=== PATIENT | male | born 1960 | race African-American/Black ===

== ENCOUNTER 2018-08-27 10:20 | Inpatient (IN) | payer OTHER ==
[2018-08-27 10:51] VITALS: BMI 19.9
--- NOTE | 2018-08-27 11:47 | HP ---
CIWA Score Nausea/Vomitin Muscle Tremors: 4-Moderate,w/Arms Extend Anxiety: 4-Mod. Anxious/Guarded Agitation: 1-Slight > Activity Paroxysmal Sweats: No Perspiration Orientation: 0-Oriented Tacttile Disturbances: 0-None Auditory Disturbances: 0-None Visual Disturbances: 0-None Headache: 2-Mild CIWA-Ar Total Score: 14 - Admission Criteria OASAS Guidelines: Admission for Medically Managed Detox: Requires at least one of the followin. CIWA greater than 12 2. Seizures within the past 24 hours 3. Delirium tremens within the past 24 hours 4. Hallucinations within the past 24 hours 5. Acute intervention needed for co occurring medical disorder 6. Acute intervention needed for co occurring psychiatric disorder 7. Severe withdrawal that cannot be handled at a lower level of care (continued vomiting, continued diarrhea, abnormal vital signs) requiring intravenous medication and/or fluids 8. Patient presents the following: CIWA greater than 12 Admission Criteria Met: Admission criteria met Admission ROS BHS - HPI Chief Complaint: I'm sliding down hill, I need to stop and I can't do it by myself Allergies/Adverse Reactions: Allergies Allergy/AdvReac Type Severity Reaction Status Date / Time No Known Allergies Allergy Verified 08/27/18 10:41 History of Present Illness: 58 yo gentleman here for detox from alcohol, also using crack. First time in detox here but previously in detox about six months ago at [facility] and also treated at [facility]. Denies seizure or black outs but drinks first thing in the morning. Exam Limitations: No Limitations - Ebola screening Have you traveled outside of the country in the last 21 days: No (N) Have you had contact with anyone from an Ebola affected area: No Do you have a fever: No - Review of Systems Constitutional: Loss of Appetite, Malaise, Changes in sleep, Weakness, Unintentional Wgt. Loss EENT: reports: No Symptoms Reported Respiratory: reports: No Symptoms reported Cardiac: reports: No Symptoms Reported GI: reports: Poor Appetite, Poor Fluid Intake, Indigestion, Abdominal cramping : reports: Frequency Musculoskeletal: reports: No Symptoms Reported Integumentary: reports: Dryness Neuro: reports: Tremors, Weakness Endocrine: reports: No Symptoms Reported Hematology: reports: No Symptoms Reported Psychiatric: reports: Judgement Intact, Mood/Affect Appropiate, Anxious Other Systems: Reviewed and Negative Patient History - Patient Medical History Hx Anemia: No Hx Asthma: No Hx Chronic Obstructive Pulmonary Disease (COPD): No Hx Cancer: No Hx Cardiac Disorders: No Hx Congestive Heart Failure: No Hx Hypertension: No Hx Hypercholesterolemia: No Hx Pacemaker: No HX Cerebrovascular Accident: No Hx Seizures: No Hx Diabetes: No Hx Gastrointestinal Disorders: No Hx Liver Disease: No Hx Genitourinary Disorders: No Hx Sexually Transmitted Disorders: No Hx Renal Disease (ESRD): No Hx Thyroid Disease: No Hx Human Immunodeficiency Virus (HIV): No Hx Hepatitis C: No Hx Depression: Yes (hospitalized years ago) Hx Suicide Attempt: No (denies) Hx Bipolar Disorder: Yes Hx Schizophrenia: No - Patient Surgical History Past Surgical History: No - PPD History Previous Implant?: Yes Documented Results: Negative w/o proof Implanted On Prior [facility] Admission?: No PPD to be Administered?: Yes - Reproductive History Patient is a Female of Child Bearing Age (11 -55 yrs old): No (male) - Smoking Cessation Smoking history: Current every day smoker Have you smoked in the past 12 months: Yes Aproximately how many cigarettes per day: 10 Initiated information on smoking cessation: Yes 'Breaking Loose' booklet given: 08/27/18 (give on floor) - Substance & Tx. History Hx Alcohol Use: Yes Hx Substance Use: Yes Substance Use Type: Alcohol, Cocaine Hx Substance Use Treatment: Yes (detox) - Substances abused Alcohol Substance route: Oral Frequency: Daily Amount used: 2 six packs 12 oz beer; 1 pint of hennesy or bacardi Age of first use: 7 Date of last use: 08/27/18 Crack Substance route: Smoking Frequency: Daily Amount used: $50-100 Age of first use: 29 Date of last use: 08/26/18 Family Disease History - Family Disease History Family Disease History: Other: Father (etoh, living), Mother (, old age) , Brother (three - living - healthy), Sister (two - living -healthy) Admission Physical Exam BHS - Vital Signs Vital Signs: Vital Signs - 24 hr 08/27/18 10:45 Temperature 97.0 F L Pulse Rate 76 Respiratory 17 Rate Blood Pressure 120/80 - Physical General Appearance: Yes: Appropriately Dressed, Cachetic, Thin, Tremorous, Anxious HEENTM: Yes: EOMI, Hearing grossly Normal, Normocephalic, Normal Voice, Pharynx Normal Respiratory: Yes: Normal Breath Sounds, No Respiratory Distress Neck: Yes: No masses,lesions,Nodules, Supple Breast: Yes: Breast Exam Deferred Cardiology: Yes: Regular Rhythm, Regular Rate Abdominal: Yes: Flat, Soft Genitourinary: Yes: Frequency Back: Yes: Normal Inspection Musculoskeletal: Yes: full range of Motion, Gait Steady Extremities: Yes: Normal Range of Motion, Tremors Neurological: Yes: Fully Oriented, Alert, Normal Mood/Affect, Normal Response Integumentary: Yes: Normal Color, Dry, Warm, Rash (chronic back rash - flat, hyperpigmented with small plaque) Lymphatic: Yes: Within Normal Limits - Diagnostic (1) Alcohol dependence with uncomplicated withdrawal Current Visit: Yes Status: Chronic (2) Psoriasis Current Visit: Yes Status: Chronic Comment: states has had back rash for many years, not currently needing treatment (3) Nicotine dependence Current Visit: Yes Status: Chronic Qualifiers: Nicotine product type: cigarettes Substance use status: uncomplicated Qualified Code(s): F17.210 - Nicotine dependence, cigarettes, uncomplicated Cleared for Admission [facility] - Detox or Rehab [facility] Level of Care: Medically Managed Detox Regimen/Protocol: Librium Breathalyzer - Breathalyzer Breathalyzer: 0 Urine Drug Screen - Test Device Lot number: [id number] Expiration date: 05/26/20 - Control Is test valid?: Yes - Results Drug screen NEGATIVE: No Urine drug screen results: CECILLE-Cocaine, BZO-Benzodiazepines Inpatient Rehab Admission - Rehab Decision to Admit Inpatient rehab admission?: No
[2018-08-27] MEDS ORDERED: MAGNESIUM CITRATE 300 ML BOTTLE PO PRN (11:54)
[2018-08-27] MEDS ORDERED: BISMUTH SUBSALICYLATE 524 MG/30 ML UD PO PRN (11:54)
[2018-08-27] MEDS ORDERED: NICOTINE POLACRILEX 4 MG GUM BUC PRN (11:54)
[2018-08-27] MEDS ORDERED: ACETAMINOPHEN 325 MG TABLET (FP) PO PRN (11:54)
[2018-08-27] MEDS ORDERED: METHOCARBAMOL 500 MG TABLET PO PRN (11:54)
[2018-08-27] MEDS ORDERED: IBUPROFEN 400 MG TABLET (FP) PO PRN (11:54)
[2018-08-27] MEDS ORDERED: chlordiazePOXIDE HCL 25 MG CAPSULE PO PRN (11:54)
[2018-08-27] MEDS ORDERED: MAGNESIUM HYDROX 2400MG/30ML ORAL SUSPENSION 30 ML CUP PO PRN (11:54)
[2018-08-27] MEDS ORDERED: MAG HYDROX/AL HYDROX/SIMETH 30 ML UNIT-DOSE CUP PO PRN (11:54)
[2018-08-27] MEDS ORDERED: hydrOXYzine PAMOATE 25 MG CAPSULE (FP) PO PRN (11:54)
[2018-08-27] MEDS ORDERED: MENTHOL/PHENOL 1 EACH UD MM PRN (11:54)
[2018-08-27] MEDS ORDERED: COLLOIDAL OATMEAL 1 BAR EACH TP PRN (11:56)
[2018-08-27] MEDS ORDERED: chlordiazePOXIDE HCL 25 MG CAPSULE PO ONE (12:30)
[2018-08-27] MEDS: chlordiazePOXIDE HCL 25 MG CAPSULE PO SCH ×2 (17:26→22:45)
[2018-08-27 18:14] LABS: URINE APPEARANCE TURBID; URINE BILIRUBIN NEGATIVE (NEGATIVE); URINE COLOR YELLOW; URINE GLUCOSE (UA) NEGATIVE (NEGATIVE); URINE KETONE NEGATIVE (NEGATIVE); URINE LEUK ESTERASE NEGATIVE (NEGATIVE); URINE NITRITE NEGATIVE (NEGATIVE); URINE PROTEIN NEGATIVE (NEGATIVE); URINE UROBILINOGEN 0.2 mg/dL (0.2-1.0)
[2018-08-27] MEDS: MELATONIN 5 MG TABLETS PO PRN (22:45)
[2018-08-27] MEDS: THIAMINE HCL 100 MG TABLET (FP) PO SCH (22:45)
[2018-08-28] MEDS: chlordiazePOXIDE HCL 25 MG CAPSULE PO SCH ×4 (05:25→22:08)
--- NOTE | 2018-08-28 08:36 | CONSULT ---
[facility] Psychiatric Consult - Data Date of interview: 08/28/18 Admission source: Self-referred Identifying data: Mr Sam yancey a 58 years old single black male, unemployed receving SSD, homeless living in a longterm seeking detox treatment for alcohol and crack cocaine Substance Abuse History: Reports history of alcohol and crack cocaine use. Refer to addiction counselor's summary foir further information Medical History: Unremarkale except for HIV since 2002. Smokes 10 cigarettes daily Psychiatric History: Reports that his first psychiatric contact was in the when he was admitted to an unknown facility, diagnosed with Bipolar Disorder and started on psychotropic medications. Report multiple subsequent hospitalizations mostly at the [facility] and [facility]. Reports that his most recent admission was at [facility] years ago. Reports currently receiving outpatient psychiatric treatment at the [facility] and he is prescribed Zyprexa 15 mg/hs and Remeron 15 mg/hs. Denies previous suicidal attempts. At present, denies experiencing psychotic, manic or depressive symptoms, S.H ideations. However, reorts sleeping poorly Physical/Sexual Abuse/Trauma History: Denies history of emotional, physical or sexual abuse as well as DV relationship. 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 Additional Comment: Denies criminal history Mental Status Exam - Mental Status Exam Alert and Oriented to: Time, Place, Person Cognitive Function: Fair Patient Appearance: Well Groomed Mood: Hopeful, Euthymic Patient Behavior: Cooperative Speech Pattern: Clear Voice Loudness: Normal Thought Process: Intact, Goal Oriented Hallucinations: Denies Suicidal Ideation: Denies Homicidal Ideation: Denies Insight/Judgement: Poor Sleep: Poorly Appetite: Good Muscle strength/Tone: Normal Gait/Station: Normal Psychiatric Findings - Problem List ([place] 1, 2,3) (1) Bipolar II disorder Current Visit: Yes Status: Chronic (2) Substance-induced sleep disorder Current Visit: Yes Status: Acute (3) Alcohol dependence with uncomplicated withdrawal Current Visit: Yes Status: Acute (4) Cocaine dependence Current Visit: Yes Status: Acute (5) Nicotine dependence Current Visit: Yes Status: Chronic Qualifiers: Nicotine product type: cigarettes Substance use status: uncomplicated Qualified Code(s): F17.210 - Nicotine dependence, cigarettes, uncomplicated (6) Psoriasis Current Visit: Yes Status: Chronic Comment: states has had back rash for many years, not currently needing treatment - Initial Treatment Plan Initial Treatment Plan: 1) Continue Zyprexa 15 mg po HS and remeron 15 mg po HS. 2) Start Belsomra 10 mg po HS prn for insomnia. 3) Continue inpatient detoxification
[2018-08-28] MEDS: PRENATAL VITAMINS W/ FOLIC ACID TABLET (FP) PO SCH (10:06)
[2018-08-28 10:52] LABS: ALBUMIN 3.8 g/dl (3.4-5.0); BILIRUBIN,TOTAL 0.3 mg/dL (0.2-1); CALCIUM 8.7 mg/dL (8.5-10.1); CREATININE 0.9 mg/dL (0.55-1.3); POTASSIUM 3.8 mmol/L (3.5-5.1); TOT PROT 7.4 g/dl (6.4-8.2)
[2018-08-28 11:00] LABS: HEMATOCRIT 29.6 % (35.4-49); MCHC 30.4 g/dl (32.0-35.9); MEAN CELL VOLUME 64.2 fl (80-96); MEAN PLT VOLUME 9.4 fl (7.5-11.1); PLATELET COUNT 69 K/MM3 (134-434); RBC 4.61 M/mm3 (4.00-5.60); RDW 19.7 % (11.9-15.9)
[2018-08-28 12:04] LABS: MCH 19.5 pg (25.7-33.7); WHITE BLOOD COUNT 1.9 K/mm3 (4.0-10.0)
[2018-08-28 12:13] LABS: SICKLE CELL SCREEN NEGATIVE (NEGATIVE)
--- NOTE | 2018-08-28 13:02 | PN ---
[facility] CIWA - CIWA Score Nausea/Vomitin-No Nausea/No Vomiting Muscle Tremors: 3 Anxiety: 2 Agitation: 0-Normal Activity Paroxysmal Sweats: 2 Orientation: 0-Oriented Tacttile Disturbances: 0-None Auditory Disturbances: 0-None Visual Disturbances: 0-None Headache: 0-None Present CIWA-Ar Total Score: 7 S Progress Note (SOAP) Subjective: shakes sleep disturbance Objective: 08/28/18 12:55 A & O x 3 tremors noted no acute distress Vital Signs Temperature 97.3 F L 08/28/18 09:48 Pulse Rate 90 08/28/18 09:48 Respiratory Rate 16 08/28/18 09:48 Blood Pressure 120/83 08/28/18 09:48 O2 Sat by Pulse Oximetry (%) Laboratory Last Values WBC 1.9 K/mm3 (4.0-10.0) L* 08/28/18 07:40 RBC 4.61 M/mm3 (4.00-5.60) 08/28/18 07:40 Hgb 9.0 GM/dL (11.7-16.9) L 08/28/18 07:40 Hct 29.6 % (35.4-49) L 08/28/18 07:40 MCV 64.2 fl (80-96) L 08/28/18 07:40 MCH 19.5 pg (25.7-33.7) L 08/28/18 07:40 MCHC 30.4 g/dl (32.0-35.9) L 08/28/18 07:40 RDW 19.7 % (11.9-15.9) H 08/28/18 07:40 Plt Count 69 K/MM3 (134-434) L 08/28/18 07:40 MPV 9.4 fl (7.5-11.1) 08/28/18 07:40 Sickle Cell Screen Negative (NEGATIVE) 08/28/18 07:40 Sodium 143 mmol/L (136-145) 08/28/18 07:40 Potassium 3.8 mmol/L (3.5-5.1) 08/28/18 07:40 Chloride 107 mmol/L (98-107) 08/28/18 07:40 Carbon Dioxide 28 mmol/L (21-32) 08/28/18 07:40 Anion Gap 8 MMOL/L (8-16) 08/28/18 07:40 BUN 10 mg/dL (7-18) 08/28/18 07:40 Creatinine 0.9 mg/dL (0.55-1.3) 08/28/18 07:40 Est GFR (CKD-EPI)AfAm 107.97 08/28/18 07:40 Est GFR (CKD-EPI)NonAf 93.16 08/28/18 07:40 Random Glucose 81 mg/dL (74-106) 08/28/18 07:40 Calcium 8.7 mg/dL (8.5-10.1) 08/28/18 07:40 Total Bilirubin 0.3 mg/dL (0.2-1) 08/28/18 07:40 AST 19 U/L (15-37) 08/28/18 07:40 ALT 26 U/L (13-61) 08/28/18 07:40 Alkaline Phosphatase 65 U/L (45-117) 08/28/18 07:40 Total Protein 7.4 g/dl (6.4-8.2) 08/28/18 07:40 Albumin 3.8 g/dl (3.4-5.0) 08/28/18 07:40 Urine Color Yellow 08/27/18 12:30 Urine Appearance Turbid 08/27/18 12:30 Urine pH 5.0 (5.0-8.0) 08/27/18 12:30 Ur Specific [place] 1.022 (1.010-1.035) 08/27/18 12:30 Urine Protein Negative (NEGATIVE) 08/27/18 12:30 Urine Glucose (UA) Negative (NEGATIVE) 08/27/18 12:30 Urine Ketones Negative (NEGATIVE) 08/27/18 12:30 Urine Blood Negative (NEGATIVE) 08/27/18 12:30 Urine Nitrite Negative (NEGATIVE) 08/27/18 12:30 Urine Bilirubin Negative (NEGATIVE) 08/27/18 12:30 Urine Urobilinogen 0.2 mg/dL (0.2-1.0) 08/27/18 12:30 Ur Leukocyte Esterase Negative (NEGATIVE) 08/27/18 12:30 ABNORMAL VALUES NOTED Assessment: 08/28/18 13:02 WITHDRAWAL SX PANCYTOPENIA Plan: CONTINUE DETOX THIS IS PATIENT'S FIRST VISIT: REPEAT LABS IN THE A.M FOR BASELINE COMPARISON EDUCATED PT ON INJURY PREVENTION AND IMPORTANCE OF HANDWASHING FOR INFECTION PREVENTION, HE VERBALIZED UNDERSTANDING
--- NOTE | 2018-08-28 15:41 | EKG ---
Test Reason : Blood Pressure : / mmHG Vent. Rate : 052 BPM Atrial Rate : 052 BPM P-R Int : 176 ms QRS Dur : 082 ms QT Int : 444 ms P-R-T Axes : 067 047 041 degrees QTc Int : 412 ms SINUS BRADYCARDIA WITH PREMATURE ATRIAL COMPLEXES VOLTAGE CRITERIA FOR LEFT VENTRICULAR HYPERTROPHY ABNORMAL ECG NO PREVIOUS ECGS AVAILABLE Confirmed by CARINE PONCE MD ([id number]) on 08/28/2018 3:40:28 PM Referred By: Confirmed By:CARINE PONCE MD
[2018-08-28] MEDS ORDERED: SUVOREXANT 10 MG TABLET PO PRN (22:00)
[2018-08-28] MEDS: THIAMINE HCL 100 MG TABLET (FP) PO SCH (22:11)
[2018-08-28] MEDS: MIRTAZAPINE 15 MG TABLET (FP) PO SCH (22:12)
[2018-08-28] MEDS: OLANZapine 7.5 MG TABLET PO SCH (22:48)
[2018-08-29] MEDS: chlordiazePOXIDE HCL 25 MG CAPSULE PO SCH ×2 (05:26→10:18)
[2018-08-29] MEDS: PRENATAL VITAMINS W/ FOLIC ACID TABLET (FP) PO SCH (10:18)
--- NOTE | 2018-08-29 11:19 | PN ---
S CIWA - CIWA Score Nausea/Vomitin-Mild Nausea/No Vomiting Muscle Tremors: 1-None Visible, but [place] Anxiety: 1-Mildly Anxious Agitation: 1-Slight > Activity Paroxysmal Sweats: 1-Minimal Palms Moist Orientation: 0-Oriented Tacttile Disturbances: 0-None Auditory Disturbances: 0-None Visual Disturbances: 0-None Headache: 1-Very Mild CIWA-Ar Total Score: 6 BHS Progress Note (SOAP) Subjective: tired resting on bed reported that long history of low wbc x 20+years and anemia denies abnormal bleeding patient follow up with hemotology every 6 months last visited 06/2018 discontinue motrin begin iron supplement Objective: 08/29/18 11:24 Vital Signs Temperature 97.4 F L 08/29/18 09:18 Pulse Rate 64 08/29/18 09:18 Respiratory Rate 18 08/29/18 09:18 Blood Pressure 126/78 08/29/18 09:18 O2 Sat by Pulse Oximetry (%) Laboratory Last Values WBC 1.9 K/mm3 (4.0-10.0) L* 08/28/18 07:40 RBC 4.61 M/mm3 (4.00-5.60) 08/28/18 07:40 Hgb 9.0 GM/dL (11.7-16.9) L 08/28/18 07:40 Hct 29.6 % (35.4-49) L 08/28/18 07:40 MCV 64.2 fl (80-96) L 08/28/18 07:40 MCH 19.5 pg (25.7-33.7) L 08/28/18 07:40 MCHC 30.4 g/dl (32.0-35.9) L 08/28/18 07:40 RDW 19.7 % (11.9-15.9) H 08/28/18 07:40 Plt Count 69 K/MM3 (134-434) L 08/28/18 07:40 MPV 9.4 fl (7.5-11.1) 08/28/18 07:40 Platelet Comment No clumping noted 08/28/18 07:40 Sickle Cell Screen Negative (NEGATIVE) 08/28/18 07:40 Sodium 143 mmol/L (136-145) 08/28/18 07:40 Potassium 3.8 mmol/L (3.5-5.1) 08/28/18 07:40 Chloride 107 mmol/L (98-107) 08/28/18 07:40 Carbon Dioxide 28 mmol/L (21-32) 08/28/18 07:40 Anion Gap 8 MMOL/L (8-16) 08/28/18 07:40 BUN 10 mg/dL (7-18) 08/28/18 07:40 Creatinine 0.9 mg/dL (0.55-1.3) 08/28/18 07:40 Est GFR (CKD-EPI)AfAm 107.97 08/28/18 07:40 Est GFR (CKD-EPI)NonAf 93.16 08/28/18 07:40 Random Glucose 81 mg/dL (74-106) 08/28/18 07:40 Calcium 8.7 mg/dL (8.5-10.1) 08/28/18 07:40 Total Bilirubin 0.3 mg/dL (0.2-1) 08/28/18 07:40 AST 19 U/L (15-37) 08/28/18 07:40 ALT 26 U/L (13-61) 08/28/18 07:40 Alkaline Phosphatase 65 U/L (45-117) 08/28/18 07:40 Total Protein 7.4 g/dl (6.4-8.2) 08/28/18 07:40 Albumin 3.8 g/dl (3.4-5.0) 08/28/18 07:40 Urine Color Yellow 08/27/18 12:30 Urine Appearance Turbid 08/27/18 12:30 Urine pH 5.0 (5.0-8.0) 08/27/18 12:30 Ur Specific [place] 1.022 (1.010-1.035) 08/27/18 12:30 Urine Protein Negative (NEGATIVE) 08/27/18 12:30 Urine Glucose (UA) Negative (NEGATIVE) 08/27/18 12:30 Urine Ketones Negative (NEGATIVE) 08/27/18 12:30 Urine Blood Negative (NEGATIVE) 08/27/18 12:30 Urine Nitrite Negative (NEGATIVE) 08/27/18 12:30 Urine Bilirubin Negative (NEGATIVE) 08/27/18 12:30 Urine Urobilinogen 0.2 mg/dL (0.2-1.0) 08/27/18 12:30 Ur Leukocyte Esterase Negative (NEGATIVE) 08/27/18 12:30 RPR Titer Nonreactive (NONREACTIVE) 08/28/18 07:40 lab noted low wbc low hgb low plat patient does not want to repeat blood work that he is following up with hemotologist x 20+ years Assessment: 08/29/18 11:25 alcohol withdrawal sx Plan: continue detox
[2018-08-29] MEDS: FERROUS SO4 325 MG TABLET (FP) PO SCH (12:38)
[2018-08-29] MEDS ORDERED: chlordiazePOXIDE HCL 10 MG CAPSULE PO PRN (17:00)
[2018-08-29] MEDS: chlordiazePOXIDE HCL 10 MG CAPSULE PO SCH ×2 (17:22→22:10)
[2018-08-29] MEDS: OLANZapine 7.5 MG TABLET PO SCH (22:10)
[2018-08-29] MEDS: MIRTAZAPINE 15 MG TABLET (FP) PO SCH (22:10)
[2018-08-29] MEDS: THIAMINE HCL 100 MG TABLET (FP) PO SCH (22:10)
[2018-08-30] MEDS: chlordiazePOXIDE HCL 10 MG CAPSULE PO SCH ×3 (05:35→17:21)
[2018-08-30] MEDS: PRENATAL VITAMINS W/ FOLIC ACID TABLET (FP) PO SCH (10:12)
[2018-08-30] MEDS: FERROUS SO4 325 MG TABLET (FP) PO SCH (10:34)
--- NOTE | 2018-08-30 16:08 | PN ---
S CIWA - CIWA Score Nausea/Vomitin-No Nausea/No Vomiting Muscle Tremors: None Anxiety: 1-Mildly Anxious Agitation: 1-Slight > Activity Paroxysmal Sweats: 2 Orientation: 0-Oriented Tacttile Disturbances: 1-Very Mild Itch/Numbness Auditory Disturbances: 0-None Visual Disturbances: 2-Mild Sensitivity Headache: 0-None Present CIWA-Ar Total Score: 7 BHS Progress Note (SOAP) Subjective: Sweating, Interrupted Sleep. Patient reports that withdrawal symptoms in general are subsiding in severity. Objective: PATIENT A & O X 3, OBSERVED AMBULATING ON UNIT UNASSISTED. IN NO ACUTE DISTRESS. 08/30/18 16:06 Vital Signs Temperature 98.2 F 08/30/18 12:59 Pulse Rate 68 08/30/18 12:59 Respiratory Rate 18 08/30/18 12:59 Blood Pressure 133/76 08/30/18 12:59 O2 Sat by Pulse Oximetry (%) Laboratory Tests 08/27/18 08/28/18 08/28/18 12:30 07:40 07:40 WBC 1.9 L* RBC 4.61 Hgb 9.0 L Hct 29.6 L MCV 64.2 L MCH 19.5 L MCHC 30.4 L RDW 19.7 H Plt Count 69 L MPV 9.4 Platelet Comment No clumping noted Sickle Cell Screen Negative Sodium 143 Potassium 3.8 Chloride 107 Carbon Dioxide 28 Anion Gap 8 BUN 10 Creatinine 0.9 Est GFR (CKD-EPI)AfAm 107.97 Est GFR (CKD-EPI)NonAf 93.16 Random Glucose 81 Calcium 8.7 Total Bilirubin 0.3 AST 19 ALT 26 Alkaline Phosphatase 65 Total Protein 7.4 Albumin 3.8 Urine Color Yellow Urine Appearance Turbid Urine pH 5.0 Ur Specific [place] 1.022 Urine Protein Negative Urine Glucose (UA) Negative Urine Ketones Negative Urine Blood Negative Urine Nitrite Negative Urine Bilirubin Negative Urine Urobilinogen 0.2 Ur Leukocyte Esterase Negative RPR Titer 08/28/18 07:40 WBC RBC Hgb Hct MCV MCH MCHC RDW Plt Count MPV Platelet Comment Sickle Cell Screen Sodium Potassium Chloride Carbon Dioxide Anion Gap BUN Creatinine Est GFR (CKD-EPI)AfAm Est GFR (CKD-EPI)NonAf Random Glucose Calcium Total Bilirubin AST ALT Alkaline Phosphatase Total Protein Albumin Urine Color Urine Appearance Urine pH Ur Specific [place] Urine Protein Urine Glucose (UA) Urine Ketones Urine Blood Urine Nitrite Urine Bilirubin Urine Urobilinogen Ur Leukocyte Esterase RPR Titer Nonreactive LABS NOTED. PATIENT PREVIOUSLY REPORTED HISTORY OF ANEMIA AND OF LEUKOPENIA. 08/30/18 16:09 Assessment: 08/30/18 16:07 WITHDRAWAL SYMPTOMS. PANCYTOPENIA. 08/30/18 16:09 Plan: CONTINUE DETOX. INCREASE DAILY PO FLUID INTAKE. CONTINUE FEOSOL PO FOR ANEMIA.
[2018-08-30] MEDS: THIAMINE HCL 100 MG TABLET (FP) PO SCH (22:00)
[2018-08-30] MEDS: OLANZapine 7.5 MG TABLET PO SCH (22:00)
[2018-08-30] MEDS: MIRTAZAPINE 15 MG TABLET (FP) PO SCH (22:00)
[2018-08-30] MEDS: MELATONIN 5 MG TABLETS PO PRN (22:01)
[2018-08-31] MEDS: chlordiazePOXIDE HCL 10 MG CAPSULE PO SCH (06:30)
[2018-08-31 09:43] VITALS: BP 128/78; PULSE 61; TEMP 97.8
[2018-08-31] MEDS: FERROUS SO4 325 MG TABLET (FP) PO SCH (10:36)
[2018-08-31] MEDS: PRENATAL VITAMINS W/ FOLIC ACID TABLET (FP) PO SCH (10:36)
--- NOTE | 2018-08-31 14:21 | DS ---
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 - Physical Exam Results Vital Signs: Vital Signs Temperature 97.8 F 08/31/18 09:42 Pulse Rate 61 08/31/18 09:42 Respiratory Rate 20 08/31/18 09:42 Blood Pressure 128/78 08/31/18 09:42 O2 Sat by Pulse Oximetry (%) Pertinent Admission Physical Exam Findings: alcohol withdrawal sx Vital Signs Temperature 97.8 F 08/31/18 09:42 Pulse Rate 61 08/31/18 09:42 Respiratory Rate 20 08/31/18 09:42 Blood Pressure 128/78 08/31/18 09:42 O2 Sat by Pulse Oximetry (%) Laboratory Last Values WBC 1.9 K/mm3 (4.0-10.0) L* 08/28/18 07:40 RBC 4.61 M/mm3 (4.00-5.60) 08/28/18 07:40 Hgb 9.0 GM/dL (11.7-16.9) L 08/28/18 07:40 Hct 29.6 % (35.4-49) L 08/28/18 07:40 MCV 64.2 fl (80-96) L 08/28/18 07:40 MCH 19.5 pg (25.7-33.7) L 08/28/18 07:40 MCHC 30.4 g/dl (32.0-35.9) L 08/28/18 07:40 RDW 19.7 % (11.9-15.9) H 08/28/18 07:40 Plt Count 69 K/MM3 (134-434) L 08/28/18 07:40 MPV 9.4 fl (7.5-11.1) 08/28/18 07:40 Platelet Comment No clumping noted 08/28/18 07:40 Sickle Cell Screen Negative (NEGATIVE) 08/28/18 07:40 Sodium 143 mmol/L (136-145) 08/28/18 07:40 Potassium 3.8 mmol/L (3.5-5.1) 08/28/18 07:40 Chloride 107 mmol/L (98-107) 08/28/18 07:40 Carbon Dioxide 28 mmol/L (21-32) 08/28/18 07:40 Anion Gap 8 MMOL/L (8-16) 08/28/18 07:40 BUN 10 mg/dL (7-18) 08/28/18 07:40 Creatinine 0.9 mg/dL (0.55-1.3) 08/28/18 07:40 Est GFR (CKD-EPI)AfAm 107.97 08/28/18 07:40 Est GFR (CKD-EPI)NonAf 93.16 08/28/18 07:40 Random Glucose 81 mg/dL (74-106) 08/28/18 07:40 Calcium 8.7 mg/dL (8.5-10.1) 08/28/18 07:40 Total Bilirubin 0.3 mg/dL (0.2-1) 08/28/18 07:40 AST 19 U/L (15-37) 08/28/18 07:40 ALT 26 U/L (13-61) 08/28/18 07:40 Alkaline Phosphatase 65 U/L (45-117) 08/28/18 07:40 Total Protein 7.4 g/dl (6.4-8.2) 08/28/18 07:40 Albumin 3.8 g/dl (3.4-5.0) 08/28/18 07:40 Urine Color Yellow 08/27/18 12:30 Urine Appearance Turbid 08/27/18 12:30 Urine pH 5.0 (5.0-8.0) 08/27/18 12:30 Ur Specific [place] 1.022 (1.010-1.035) 08/27/18 12:30 Urine Protein Negative (NEGATIVE) 08/27/18 12:30 Urine Glucose (UA) Negative (NEGATIVE) 08/27/18 12:30 Urine Ketones Negative (NEGATIVE) 08/27/18 12:30 Urine Blood Negative (NEGATIVE) 08/27/18 12:30 Urine Nitrite Negative (NEGATIVE) 08/27/18 12:30 Urine Bilirubin Negative (NEGATIVE) 08/27/18 12:30 Urine Urobilinogen 0.2 mg/dL (0.2-1.0) 08/27/18 12:30 Ur Leukocyte Esterase Negative (NEGATIVE) 08/27/18 12:30 RPR Titer Nonreactive (NONREACTIVE) 08/28/18 07:40 lab noted patient agrees to contact with his hemotologist for follow up appointment schedule after rehab discharge - Treatment Hospital Course: Detox Protocol Followed, Detoxed Safely, Responded well, Discharged Condition Good, Rehab Referral Accepted Patient has Accepted a Rehab Referral to: [facility] - Medication Discharge Medications: Ambulatory Orders Mirtazapine 15 mg PO HS 08/27/18 Olanzapine 15 mg PO HS 08/27/18 - Diagnosis (1) Pancytopenia Status: Chronic (2) Alcohol dependence with uncomplicated withdrawal Status: Acute (3) Nicotine dependence Status: Acute Qualifiers: Nicotine product type: cigarettes Substance use status: in withdrawal Qualified Code(s): F17.213 - Nicotine dependence, cigarettes, with withdrawal (4) Substance-induced sleep disorder Status: Suspected - AMA Did Patient Leave Against Medical Advice: No
== END 2018-08-31 09:20 | disposition home or self-care (01) | DRG 897 ==
LOC: YASAS 10:20 → Y3N 12:12
PROVIDERS: ADMIT Surgery; ATTEND Surgery
PROC: HZ2ZZZZ Detoxification Services for Substance Abuse Treatment (ICD-10-PCS; principal; 2018-08-27)
DX: F10.230 Alcohol dependence with withdrawal, uncomplicated (principal); F14.20 Cocaine dependence, uncomplicated; F19.282 Other psychoactive substance dependence with psychoactive substance-induced sleep disorder; F31.81 Bipolar II disorder; D61.818 Other pancytopenia; F17.210 Nicotine dependence, cigarettes, uncomplicated; L40.9 Psoriasis, unspecified
CPT/HCPCS: 36415; 80053; 81003; 85027; 85660; 86593; 93005; 93010